=== PATIENT | female | born 1950 | race Caucasian/White ===

== ENCOUNTER 2018-05-19 14:24 | Day surgery (SDC) | payer MEDICARE, OTHER, MEDICAID ==
[~2018-05-19 14:24] MED LIST: SOD CHLORIDE 0.9% 500 ML IV
[2018-05-19] MEDS ORDERED: INDOMETHACIN 50 MG SUPP PR (18:00)
[2018-05-19] MEDS ORDERED: IOHEXOL 300MG/ML 30 ML BTL (18:11)
[2018-05-19] MEDS ORDERED: DIPHENHYDRAMINE 50 MG INJ IV (18:30)
[2018-05-19] MEDS ORDERED: MEPERIDINE 25 MG INJ IV (18:30)
[2018-05-19] MEDS ORDERED: ONDANSETRON 4 MG INJ IV (18:30)
[2018-05-19] MEDS ORDERED: HYDROmorphONE 1 MG/5 ML IV SYRINGE IV (18:30)
[2018-05-19] MEDS ORDERED: GLUCAGON 1 MG INJ (18:37)
[2018-05-19] MEDS ORDERED: LIDOCAINE 2% (SDV) 5 ML INJ (18:41)
[2018-05-19] MEDS ORDERED: PROPOFOL 20 ML (18:41)
[2018-05-19] MEDS ORDERED: FAMOTIDINE 20 MG INJ (18:43)
[2018-05-19] MEDS ORDERED: ONDANSETRON 4 MG INJ (18:43)
== END 2018-05-19 19:54 | disposition home or self-care (01) ==
LOC: GIL 14:24 → SDS 14:24
DX: K83.1 Obstruction of bile duct (principal); I12.0 Hypertensive chronic kidney disease with stage 5 chronic kidney disease or end stage renal disease; N18.6 End stage renal disease; Z99.2 Dependence on renal dialysis; E11.9 Type 2 diabetes mellitus without complications; Z79.4 Long term (current) use of insulin
CPT/HCPCS: 43262; 74330; 82962; 84132